=== PATIENT | male | born 1955 | race Caucasian/White ===

== ENCOUNTER 2022-08-13 12:01 | Emergency (ER) | payer OTHER, MEDICAID ==
[~2022-08-13] VITALS: Ht 175.3 cm; Wt 113.4 kg
[2022-08-13 12:09] VITALS: BP 100/60; PULSE 72; RESP 16; TEMP 98; O2SAT 98
[2022-08-13] MEDS ORDERED: oxyCODONE/APAP 5/325 MG 1 TAB TAB PO ONE (12:45)
[2022-08-13] MEDS ORDERED: OXYC5TAB4 PO ×2 (14:13→16:46)
== END 2022-08-13 14:43 | disposition home or self-care (01) ==
LOC: MED 12:01
DX: M25.562 Pain in left knee (principal); Z98.890 Other specified postprocedural states; Z88.2 Allergy status to sulfonamides
CPT/HCPCS: 73562; 99283; Q0092